=== PATIENT | male | born 1965 | race Caucasian/White ===

== ENCOUNTER 2020-03-29 00:59 | Emergency (ER) | payer OTHER, SELFPAY ==
[~2020-03-29] VITALS: Ht 167.6 cm; Wt 82.7 kg
[2020-03-29 01:01] VITALS: BP 134/75
--- NOTE | 2020-03-29 02:05 | NUR ---
task rn: pt medicated per mar at this time. pt provided with juice.
--- NOTE | 2020-03-29 02:19 | NUR ---
task rn: pt d/c with d/c summary and referral sheet. all questions answered. pt ambulates to registration desk with steady gait for d/c home. pt denies any other needs pertaining to this visit.
== END 2020-03-29 02:26 | disposition home or self-care (01) ==
LOC: ED 02:23
DX: F10.229 Alcohol dependence with intoxication, unspecified (principal); Y90.9 Presence of alcohol in blood, level not specified
CPT/HCPCS: 99283; Q0177

== ENCOUNTER 2020-10-14 11:16 | Emergency (ER) | payer OTHER ==
[~2020-10-14] VITALS: Ht 167.6 cm; Wt 88.9 kg
--- NOTE | 2020-10-14 11:39 | NUR ---
pt in bed, no distress states, 'im knew to town, i take remeron for sleep, last drink was yesterday morning, pt states that he has alot of anxiety,
[2020-10-14 12:02] VITALS: BP 126/68
== END 2020-10-14 12:11 | disposition home or self-care (01) ==
LOC: ED 11:55
DX: R20.0 Anesthesia of skin (principal); Z76.0 Encounter for issue of repeat prescription; G89.29 Other chronic pain
CPT/HCPCS: 99281

== ENCOUNTER 2020-12-04 18:17 | Emergency (ER) | payer OTHER ==
[~2020-12-04] VITALS: Ht 167.6 cm; Wt 89.0 kg
--- NOTE | 2020-12-04 18:27 | NUR ---
TITI CASE- pt reports "I want to detox from alcohol." PT reports he usually drinks 1/5th vodka/day, last drink 1 hour ago. Pt also reports "I took some kind of morphine cocktail with a bunch of other stuff" last night. Pt reports feeling anxious, verbal reassurance provided. Pt assisted to change into hospital gown. Continuous heart, oxygen and BP monitors applied, all safety measures observed.
--- NOTE | 2020-12-04 18:44 | NUR ---
Report to Gia GUARDADO.
--- NOTE | 2020-12-04 18:55 | NUR ---
REPORT FROM LAURIE GUARDADO
[2020-12-04] MEDS ORDERED: LORazepam 1MG TABLET PO ONE (19:00)
[2020-12-04] MEDS ORDERED: THIAMINE 100MG TABLET PO ONE (19:00)
[2020-12-04] MEDS ORDERED: ONDANSETRON ODT 4 MG PO ONE (19:00)
[2020-12-04] MEDS ORDERED: ONDANSETRON ODT 4 MG ONE (19:02)
[2020-12-04] MEDS ORDERED: THIAMINE 100MG TABLET ONE (19:02)
[2020-12-04] MEDS ORDERED: LORazepam 1MG TABLET ONE (19:03)
[2020-12-04 19:10] LABS: BASOPHILS % (AUTO) 1 % (0-1); EOSINOPHILS % (AUTO) 1 % (1-7); LYMPHOCYTES % (AUTO) 33 % (22-44); MEAN CORPUSCULAR HEMOGLOBIN 33.7 pg (27.5-34.5); MEAN PLATELET VOLUME 7.1 fL (7.4-10.4); MONOCYTES % (AUTO) 5 % (2-9); NEUTROPHILS % (AUTO) 59 % (42-75); PLATELET COUNT 257 x10^3/uL (130-400); RED CELL DISTRIBUTION WIDTH 14.1 % (9.4-14.8)
[2020-12-04 19:12] LABS: MD NO
[2020-12-04 19:23] LABS: ALANINE AMINOTRANSFERASE 53 U/L (12-78); ALBUMIN 3.4 g/dL (3.4-5.0); ANION GAP 9 mmol/L (5-15); CALCIUM 7.8 mg/dL (8.5-10.1); CHLORIDE 108 mmol/L (98-107); CREATININE 0.92 mg/dL (0.7-1.3)
[2020-12-04 19:25] LABS: ALKALINE PHOSPHATASE 93 U/L (45-117); BILIRUBIN,TOTAL 0.2 mg/dL (0.2-1.0); TOTAL PROTEIN 6.9 g/dL (6.4-8.2)
--- NOTE | 2020-12-04 20:03 | NUR ---
PT REPORTS "FEELING A LOT BETTER FOLLOWING DESKTOP TECHNICIAN". NO ADDITIONAL NEEDS AT THIS TIME. CALL LIGHT AND PERSONAL BELONGINGS WITHIN REACH
[2020-12-04 21:59] VITALS: BP 128/76
--- NOTE | 2020-12-04 22:11 | NUR ---
PT AMBULATORY WITH STEADY GAIT. "IM READY TO HEAD OUT NOW". AWAITING D/C
--- NOTE | 2020-12-04 22:22 | NUR ---
Patient given discharge instructions and they have confirmed that they understand the instructions. Patient ambulatory with steady gait.
== END 2020-12-04 22:23 | disposition home or self-care (01) ==
LOC: ED 20:20
DX: F10.220 Alcohol dependence with intoxication, uncomplicated (principal); Y90.0 Blood alcohol level of less than 20 mg/100 ml
CPT/HCPCS: 36415; 80053; 80320; 83690; 85025; 99285; Q0162; G0480

== ENCOUNTER 2020-12-08 09:38 | Emergency (ER) | payer OTHER ==
[~2020-12-08] VITALS: Ht 170.2 cm; Wt 88.7 kg
[2020-12-08] MEDS ORDERED: LORazepam 2 MG/ML, 1ML ONE (10:01)
[2020-12-08] MEDS ORDERED: ONDANSETRON 2MG/ML, 2ML ONE (10:01)
--- NOTE | 2020-12-08 10:13 | NUR ---
PT PLACED ON ALL ROOM MONITORING. ST ON HEART MONITOR. PT TREMULOUS TO BUE, PURPOSELY SHAKING LE, ANXIOUS. FEET DRY, NO WOUNDS OBSERVED, WARM BLANKET PROVIDED. PT R/O NAUSEA WITH DRY HEAVES THIS AM, NONE AT THIS TIME. LAST WITHDRAWAL SEIZURE 10 YEARS AGO. PT STATES UNABLE TO F/U WITH DETOX AFTER VISIT 12/04, STATING "THEY WOULDN'T TAKE ME, SEEN ME TOO MANY TIMES". PT EXPRESSES DESIRE FOR DETOX TODAY. SR UP X 2, CALL LIGHT WITHIN REACH.
[2020-12-08] MEDS ORDERED: ONDANSETRON 2MG/ML, 2ML IVPush ONE (10:30)
[2020-12-08] MEDS ORDERED: LORazepam 2 MG/ML, 1ML IVPush ONE ×2 (10:30→12:00)
[2020-12-08] MEDS ORDERED: SODIUM CHLORIDE 0.9% 1,000ML IVBOLUS ONE (10:30)
[2020-12-08 11:48] VITALS: BP 152/94
--- NOTE | 2020-12-08 11:49 | NUR ---
TASK RN: WITH REASSESMENT POST 1L NS AND 1MG OF ATIVAN PATIENT STILL WITH CIWA OF 11 AND COMPLAINING OF NUMB FEET BILATERALLY. MEDICATED PER EMAR WITH ADDITIONAL 1MG OF ATIVAN IV, PROVIDED WITH WARM SOCK X2 AND UPDATED ON POC PRIMARY RN UPDATED WELL
== END 2020-12-08 13:08 | disposition home or self-care (01) ==
LOC: ED 10:40
DX: F10.10 Alcohol abuse, uncomplicated (principal); F15.10 Other stimulant abuse, uncomplicated; F17.210 Nicotine dependence, cigarettes, uncomplicated; B35.3 Tinea pedis; F41.1 Generalized anxiety disorder; Z72.9 Problem related to lifestyle, unspecified; Y90.0 Blood alcohol level of less than 20 mg/100 ml
CPT/HCPCS: 96374; 96375; 96376; 99284; 99406; J2060; J2405; J7030

== ENCOUNTER 2020-12-13 21:06 | Emergency (ER) | payer OTHER ==
[~2020-12-13] VITALS: Ht 167.6 cm; Wt 91.6 kg
[2020-12-13 21:29] VITALS: BP 152/102
[2020-12-13] MEDS ORDERED: IBUPROFEN 600 MG TABLET PO ONE (21:30)
[2020-12-13] MEDS ORDERED: IBUPROFEN 600 MG TABLET ONE (21:46)
[2020-12-13] MEDS ORDERED: THIAMINE 100MG TABLET ONE (22:06)
[2020-12-13] MEDS ORDERED: THIAMINE 100MG TABLET PO ONE (22:30)
== END 2020-12-13 22:25 | disposition home or self-care (01) ==
LOC: ED 22:20
DX: G56.03 Carpal tunnel syndrome, bilateral upper limbs (principal); G62.1 Alcoholic polyneuropathy; F10.188 Alcohol abuse with other alcohol-induced disorder; Y90.0 Blood alcohol level of less than 20 mg/100 ml
CPT/HCPCS: 29125; 82962; 99283

== ENCOUNTER 2020-12-28 06:58 | Emergency (ER) | payer OTHER ==
[~2020-12-28] VITALS: Ht 167.6 cm; Wt 85.0 kg
[2020-12-28 07:12] VITALS: BP 150/86
--- NOTE | 2020-12-28 07:17 | NUR ---
SIDNEY DESIR AT BEDSIDE FOR EVALUATION. PT REPORTS SLEEPING OUTSIDE LAST NIGHT, DOING HERION, AND DRINKING.
--- NOTE | 2020-12-28 07:20 | NUR ---
PT SITTING UP IN BED RUBBING HANDS STATING "YOU PEOPLE NEED TO GIVE ME SOMETHING STRONGER THAN TYLENOL. I HAVE PURI BITE" PTS HANDS ARE WARM, PINK, WITH CAP REFIL >3 SECONDS. ATTACHED TO MONITORS. VSS. Addendum: 12/28/20 at 0725 by JEROMY PT SITTING UP IN BED RUBBING HANDS STATING "YOU PEOPLE NEED TO GIVE ME SOMETHING STRONGER THAN TYLENOL. I HAVE PURI BITE" PTS HANDS ARE WARM, PINK, WITH CAP REFIL <3 SECONDS. ATTACHED TO MONITORS. VSS.
--- NOTE | 2020-12-28 08:27 | NUR ---
PT AGIATED MD WOULD NOT PRESCIRBE PAIN MEDICATON. PT BECOMING INCREASINGLY AGRESSIVE. SECURITY AT BEDSIDE. PT DRESSED AND LEFT WITH ALL BELONGINGS ESCORTED BY SECURITY FOR D/C WITH A STEADY GAIT.
== END 2020-12-28 08:28 | disposition home or self-care (01) ==
LOC: ED 07:23
DX: T69.9XXA Effect of reduced temperature, unspecified, initial encounter (principal)
CPT/HCPCS: 99283

== ENCOUNTER 2020-12-30 12:59 | Emergency (ER) | payer OTHER ==
[~2020-12-30] VITALS: Ht 167.6 cm; Wt 90.0 kg
--- NOTE | 2020-12-30 13:26 | NUR ---
PT TO DECON ROOM THEN TR 2. ASSIST PRIMARY WITH TRIAGE. BP CUFF, PULSE OX IN PLACE. URINAL AT BS. WARM BLANKETS PROVIDED. REPORT TO GURVINDER GUARDADO.
[2020-12-30 13:41] LABS: BASOPHILS % (AUTO) 1 % (0-1); EOSINOPHILS % (AUTO) 1 % (1-7); LYMPHOCYTES % (AUTO) 29 % (22-44); MEAN CORPUSCULAR HEMOGLOBIN 33.3 pg (27.5-34.5); MEAN CORPUSCULAR HGB CONC 34.7 g/dL (33.2-36.2); MEAN PLATELET VOLUME 7.2 fL (7.4-10.4); MONOCYTES % (AUTO) 6 % (2-9); NEUTROPHILS % (AUTO) 62 % (42-75); PLATELET COUNT 226 x10^3/uL (130-400); RED BLOOD COUNT 4.74 x10^6/uL (4.38-5.82); RED CELL DISTRIBUTION WIDTH 13.6 % (9.4-14.8)
[2020-12-30 13:50] LABS: MD NO
[2020-12-30 13:52] LABS: ALBUMIN 3.8 g/dL (3.4-5.0); ANION GAP 7 mmol/L (5-15); CALCIUM 8.9 mg/dL (8.5-10.1); CHLORIDE 104 mmol/L (98-107); SALICYLATE LEVEL 4.3 mg/dL (2.8-20.0)
[2020-12-30 14:03] LABS: ALANINE AMINOTRANSFERASE 77 U/L (12-78); ALKALINE PHOSPHATASE 93 U/L (45-117); BILIRUBIN,TOTAL 0.4 mg/dL (0.2-1.0); TOTAL PROTEIN 7.4 g/dL (6.4-8.2)
--- NOTE | 2020-12-30 15:04 | NUR ---
BREAK RN: PT RESTING IN ROOM. VS STABLE. NO ACUTE DISTRESS NOTED. CALL LIGHT IN PLACE.
[2020-12-30 15:25] LABS: AMPHETAMINE SCREEN, URINE Negative (Negative); BARBITURATE SCREEN, URINE Negative (Negative); BENZODIAZEPINE SCREEN, URINE Negative (Negative); COCAINE SCREEN, URINE Negative (Negative); METHADONE SCREEN, URINE Negative (Negative); OPIATE SCREEN, URINE Negative (Negative)
[2020-12-30 15:26] LABS: CANNABINOID SCREEN, URINE Negative (Negative)
--- NOTE | 2020-12-30 15:46 | NUR ---
PT CONTINUES SLEEPING, VSS, RESP EVEN NON-LABORED. TESTS RESULTED.
--- NOTE | 2020-12-30 17:00 | NUR ---
PT REQUESTING FOOD. MEAL TRAY PROVIDED AT THIS TIME
[2020-12-30] MEDS ORDERED: ACETAMINOPHEN 325 MG TABLET ONE (17:21)
--- NOTE | 2020-12-30 17:26 | NUR ---
PT MED NOTED FOR C/O GENERALIZED PAIN.
--- NOTE | 2020-12-30 17:26 | NUR ---
PT ATE APPROX 50% OF MEAL AND SAID HE WAS FINISHED. PT OOB AND USED URINAL TO VOID, 800ML UOP. PT RTD TO BED W/O INCIDENT.
--- NOTE | 2020-12-30 17:44 | NUR ---
PT DISHEVELED,HAS PULLED OFF ALL HIS MONITORS. NEW GOWN, CLEAN SHEETS, WARM BLANKETS AND PILLOW PLACED. BACK ON ALL MONITORS. NOW SLEEPING, RESP EVEN NON-LABORED. NAD NOTED
[2020-12-30] MEDS ORDERED: ACETAMINOPHEN 325 MG TABLET PO ONE (18:00)
--- NOTE | 2020-12-30 18:20 | NUR ---
PT AWAKE C/O CONTINUED PAIN. MD NOTIFIED
--- NOTE | 2020-12-30 18:22 | NUR ---
BREATHALYZER = 0.174
[2020-12-30] MEDS ORDERED: SODIUM CHLORIDE FLUSH 10ML SYR IVF ONE (18:30)
[2020-12-30] MEDS ORDERED: THIAMINE 100MG TABLET PO ONE (18:30)
[2020-12-30] MEDS ORDERED: KETOROLAC 30 MG/1 ML IVPush ONE (18:30)
[2020-12-30] MEDS ORDERED: SODIUM CHLORIDE 0.9% 1,000ML IVBOLUS ONE (18:30)
[2020-12-30] MEDS ORDERED: LORazepam 2 MG/ML, 1ML IVPush PRN (18:30)
--- NOTE | 2020-12-30 18:30 | NUR ---
PT HR INCREASING WELL AGGITATION, DISCUSSED WITH DR TORRES, NEW ORDERS REC'D.
[2020-12-30] MEDS ORDERED: THIAMINE 100MG TABLET ONE (18:32)
[2020-12-30] MEDS ORDERED: KETOROLAC 30 MG/1 ML ONE (18:32)
[2020-12-30] MEDS ORDERED: LORazepam 2 MG/ML, 1ML ONE (18:32)
[2020-12-30 18:56] VITALS: BP 142/85
--- NOTE | 2020-12-30 18:56 | NUR ---
DR TORRES AT BEDSIDE. PT DENIES SI//HI THOUGHTS. PT MED NOTED WITH EFFECT.
--- NOTE | 2020-12-30 18:57 | NUR ---
JAYSON RPT TO DEBBY PEÑA.
--- NOTE | 2020-12-30 19:53 | NUR ---
PT SLEEPING, IN NO ACUTE DISTRESS, AND REMAINS ON CR MONITOR, AND AIRWAY INTACT, AND GOOD AERATION AND OXYGENATION.
--- NOTE | 2020-12-30 20:35 | NUR ---
PT AWAKENS EASILY, ALERT AND ORIENTED WHEN HE DOES. MOVES ALL EXTREMITIES. BREATHALYZER IS O.11 AND NOTED IN CHART. MD AWARE. PT TO BE D/C WITH INSTRUCTIONS.
--- NOTE | 2020-12-30 21:04 | NUR ---
IV DC CATH INTACT, PT READY FOR DC BUT NEEDS NEW CLOTHES.
== END 2020-12-30 21:32 | disposition home or self-care (01) ==
LOC: ED 16:09
DX: F10.120 Alcohol abuse with intoxication, uncomplicated (principal); Y90.0 Blood alcohol level of less than 20 mg/100 ml
CPT/HCPCS: 36415; 71045; 80053; 80299; 80307; 80320; 80329; 85025; 96361; 96374; 96375; 99285; J1885; J2060; J7030; Q0177; G0480

== ENCOUNTER 2020-12-31 18:32 | Emergency (ER) | payer OTHER ==
[~2020-12-31] VITALS: Ht 172.7 cm; Wt 68.2 kg
--- NOTE | 2020-12-31 18:40 | NUR ---
BIB EMS FOR ETOH. STATES HE DRANK 6 TALL BEERS. 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 PT RESTING ON GURNEY. NADN. MONITORS APPLIED. VSS.
--- NOTE | 2020-12-31 19:04 | NUR ---
PT SLEEPING ON KEITH. NADN. KENNEDY.
--- NOTE | 2020-12-31 20:22 | NUR ---
PT SLEEPING ON KEITH. NADN. KENNEDY.
--- NOTE | 2020-12-31 21:05 | NUR ---
REPORT GIVEN TO TALAT MATSON RN.
[2020-12-31 22:18] VITALS: BP 115/77
--- NOTE | 2020-12-31 22:24 | NUR ---
PT ABLE TO AMBULATE OUT OF ROOM, YELLING AT RN. MAYES CALLED FOR ASSISTANCE IN DISCHARGING PT.
== END 2020-12-31 22:26 | disposition home or self-care (01) ==
LOC: ED 19:55
DX: F10.120 Alcohol abuse with intoxication, uncomplicated (principal); G62.9 Polyneuropathy, unspecified; Y90.0 Blood alcohol level of less than 20 mg/100 ml
CPT/HCPCS: 99285

== ENCOUNTER 2021-02-17 20:41 | Emergency (ER) | payer OTHER ==
[~2021-02-17] VITALS: Ht 167.6 cm; Wt 85.7 kg
--- NOTE | 2021-02-17 21:05 | NUR ---
PT WALKING OUT OF TRIAGE. SHOUTING AT STAFF.
--- NOTE | 2021-02-17 22:32 | NUR ---
PT AMBULATED TO ROOM WITH STEADY GAIT. C/O OF NEUROPATHY IN FINGERS OF BOTH HANDS AND STATES HE WANTS HELP FOR HIS ETOH ABUSE. PT TUYERE FITTER TO MONITORS. VSS. BREATHING EVEN AND UNLABORED. PT APPEARS INTOXICATED STATES HE DRINKS A 5TH OF ALCOHOL A DAY WITH BEERS. CALL LIGHT WITHIN REACH, RAILS ENGAGED, BED IN LOW POSITION. TM
--- NOTE | 2021-02-17 23:38 | NUR ---
PT SLEEPING IN BED. PT IN NAD. PT CONDITION UNCHANGED. BREATHING EVEN AND UNLABORED PT APPEARS CONFORTABLE. WCTM
[2021-02-17] MEDS ORDERED: ONDANSETRON ODT 4 MG PO ONE (23:45)
[2021-02-18] MEDS ORDERED: ACETAMINOPHEN 325 MG TABLET PO ONE
[2021-02-18] MEDS ORDERED: ONDANSETRON 4 MG TABLET PO ONE
[2021-02-18] MEDS ORDERED: ONDANSETRON ODT 4 MG ONE (00:10)
[2021-02-18] MEDS ORDERED: ACETAMINOPHEN 325 MG TABLET ONE (00:10)
[2021-02-18 00:14] VITALS: BP 120/88
--- NOTE | 2021-02-18 00:15 | NUR ---
pt resting in bed in nad. pt conditiono unchanged. vss. wctm
--- NOTE | 2021-02-18 00:22 | NUR ---
PT GIVEN CRACKERS, MILK, CEREAL, AND WATER.
--- NOTE | 2021-02-18 00:35 | NUR ---
Patient given VERBAL discharge instructions. PT REFUSED DISCHARGE PAPERWORK. PT YELLED AT THIS RN AND STATED "JUST GIVE ME THE BUS PASS". PT CONTINUALLY BEGAN TO BECOME MORE AGITATED AND LEFT YELLING "THAT WE DIDN'T NOTHING FOR HIM HERE". Patient ambulatory with steady gait.
== END 2021-02-18 00:42 | disposition home or self-care (01) ==
LOC: ED 02-18 00:20
DX: F10.229 Alcohol dependence with intoxication, unspecified (principal); G62.1 Alcoholic polyneuropathy; R20.2 Paresthesia of skin; Z72.9 Problem related to lifestyle, unspecified; R00.0 Tachycardia, unspecified; F17.200 Nicotine dependence, unspecified, uncomplicated; Y90.0 Blood alcohol level of less than 20 mg/100 ml
CPT/HCPCS: 99283; Q0162

== ENCOUNTER 2021-03-28 01:17 | Emergency (ER) | payer MEDICAID ==
[~2021-03-28] VITALS: Ht 167.6 cm; Wt 88.0 kg
[2021-03-28 01:23] VITALS: BP 145/94
== END 2021-03-28 02:24 | disposition home or self-care (01) ==
LOC: ED 02:00
DX: L03.116 Cellulitis of left lower limb (principal); L03.115 Cellulitis of right lower limb; B35.3 Tinea pedis; F17.210 Nicotine dependence, cigarettes, uncomplicated
CPT/HCPCS: 99406

== ENCOUNTER 2021-03-28 15:05 | Emergency (ER) | payer MEDICAID ==
[~2021-03-28] VITALS: Ht 167.6 cm; Wt 88.0 kg
[2021-03-28 15:06] VITALS: BP 102/59
--- NOTE | 2021-03-28 15:28 | NUR ---
CC OF BILAT BOTTOM FEET PAIN WITH "CRACKS AND BLISTERS" 05/03 PAIN. PT REPORTS BEING DC'D FROM [facility] YESTERDAY FOR DETOX AND HAS BEEN WALKING AROUND WITH FLIP FLOPS AND THINKS THE BOTTOM OF HIS FEET ARE SUNBURNED. PT CAN WALK. PT ALSO REPORTS +ETOH USE TODAY. PT A&0X4.
[2021-03-28] MEDS ORDERED: CEPHALEXIN 500 MG CAPSULE PO ONE (16:00)
[2021-03-28] MEDS ORDERED: CEPHALEXIN 500 MG CAPSULE ONE (16:12)
--- NOTE | 2021-03-28 16:19 | NUR ---
pt up for dc. pt upset that his insurance won't let him fill his rx at [facility]. [facility] looked up in area and pt told which ones are closest. pt keeps repeating "I'm fed". 2 pairs of socks given.
== END 2021-03-28 16:24 | disposition home or self-care (01) ==
LOC: ED 15:35
DX: L03.116 Cellulitis of left lower limb (principal); L03.115 Cellulitis of right lower limb; B35.3 Tinea pedis; F17.200 Nicotine dependence, unspecified, uncomplicated
CPT/HCPCS: 99283

== ENCOUNTER 2021-04-02 16:16 | Emergency (ER) | payer MEDICAID ==
[~2021-04-02] VITALS: Ht 167.6 cm; Wt 90.0 kg
[2021-04-02] MEDS ORDERED: ONDANSETRON 2MG/ML, 2ML ONE (16:45)
[2021-04-02] MEDS ORDERED: ONDANSETRON 2MG/ML, 2ML IVPush ONE (17:00)
[2021-04-02] MEDS ORDERED: SODIUM CHLORIDE 0.9% 1,000ML IVBOLUS ONE (17:00)
[2021-04-02] MEDS ORDERED: THIAMINE 100 MG in SODIUM CHLORIDE 0.9% 50 ML IVPB ONE (17:00)
[2021-04-02 17:21] LABS: BASOPHILS % (AUTO) 1 % (0-1); EOSINOPHILS % (AUTO) 1 % (1-7); LYMPHOCYTES % (AUTO) 31 % (22-44); MEAN CORPUSCULAR HEMOGLOBIN 34.5 pg (27.5-34.5); MEAN CORPUSCULAR HGB CONC 34.4 g/dL (33.2-36.2); MONOCYTES % (AUTO) 11 % (2-9); NEUTROPHILS % (AUTO) 57 % (42-75); PLATELET COUNT 279 x10^3/uL (130-400); RED BLOOD COUNT 3.83 x10^6/uL (4.38-5.82); RED CELL DISTRIBUTION WIDTH 16.4 % (9.4-14.8)
[2021-04-02 17:32] LABS: ANION GAP 8 mmol/L (5-15); CALCIUM 7.5 mg/dL (8.5-10.1); CHLORIDE 111 mmol/L (98-107)
[2021-04-02 17:37] LABS: ALANINE AMINOTRANSFERASE 121 U/L (12-78); ALKALINE PHOSPHATASE 67 U/L (45-117); BILIRUBIN,TOTAL 0.3 mg/dL (0.2-1.0); CREATININE 0.79 mg/dL (0.7-1.3); TOTAL PROTEIN 6.1 g/dL (6.4-8.2)
--- NOTE | 2021-04-02 20:03 | NUR ---
PT BIB EMS AFTER BEING FOUND DOWN BEHIND A [place] DOWNTOWN [place]. PT ADMITS TO "DRINKING LOTS OF BEER TODAY". PT RESTING IN [facility]. CONNECTED TO MONITORING EQUIPMENT
[2021-04-02 20:58] VITALS: BP 117/75
--- NOTE | 2021-04-02 20:59 | NUR ---
PT RESTING IN [facility]. NAD. VSS
--- NOTE | 2021-04-02 21:10 | NUR ---
PT AMBULATED WITH STEADY GAIT
== END 2021-04-02 21:43 | disposition home or self-care (01) ==
LOC: ED 16:21
DX: F10.120 Alcohol abuse with intoxication, uncomplicated (principal); R00.0 Tachycardia, unspecified; R51.9 Headache, unspecified; F17.200 Nicotine dependence, unspecified, uncomplicated; Y90.0 Blood alcohol level of less than 20 mg/100 ml
CPT/HCPCS: 36415; 70450; 80053; 80320; 85025; 93005; 96365; 96375; 99285; J2405; J3411; J7030; G0480